=== PATIENT | male | born 1955 | race Caucasian/White ===

== ENCOUNTER 2017-12-02 03:50 | Emergency (ER) | payer MEDICAID ==
[~2017-12-02 03:50] MED LIST: ARIP20 PO; ATEN1TAB75 PO; CEFA500C6 PO; CLON.1 PO; NAPR-729 PO; PARO40TA PO; QUET1TAB66 PO; TRAZ100T50 PO; XANA1TAB6 PO
[2017-12-02 04:00] VITALS: BP 171/94; PULSE 109; RESP 18; TEMP 99.2; O2SAT 97
[2017-12-02] MEDS ORDERED: HYDR-3580 PO (04:17)
[2017-12-02] MEDS ORDERED: BUSP1TAB PO (04:17)
[2017-12-02] MEDS ORDERED: FENT25DI T-DERMAL (04:17)
[2017-12-02] MEDS ORDERED: CLON1TAB PO (04:17)
[2017-12-02] MEDS ORDERED: LISI-515 PO (04:17)
[2017-12-02] MEDS ORDERED: TRAZ1TAB14 PO (04:17)
[2017-12-02] MEDS ORDERED: ATEN25TA PO (04:17)
[2017-12-02] MEDS ORDERED: GABA300C5 PO (04:17)
--- NOTE | 2017-12-02 06:04 | PD ---
HPI Chief Complaint: Psychiatric Symptoms Time Seen by Provider: 04:54 Travel History International Travel<30 days: No Contact w/Intl Traveler<30days: No Traveled to known affect area: No History of Present Illness HPI 62-year-old white male presents emergency department as a transfer from [facility] under Bustos act. The patient had been medically cleared and transferred to be evaluated by the psychiatrist. The patient states that he had been in a rehab facility due to chronic back pain. He states that he had been at the facility approximately 6 months. He had left to go babysit for his niece while she was away for a few days. He states that when he had gone back to the facility they had packed up his belongings. He had gotten upset. Patient had become agitated. The patient stated that he wanted it ended all due to his chronic pain. The patient also had banged his head. The patient here denies being suicidal. He states that he was merely upset that they had taken his residents away from him. The patient had been living in a trailer by his in the [facility]. He had been homeless until he had moved into the rehab facility. Patient admits to chronic back pain. He reports not taking his medicine for several days. Denies any homicidal ideation. No toxic ingestions. PFSH Past Medical History Arthritis: Yes (RIGHT HAND) Asthma: No Autoimmune Disease: No Blood Disorders: No Bipolar Disorder: Yes Anxiety: Yes Depression: Yes Heart Rhythm Problems: Yes (IRR. HR) Cancer: No Cardiac Catheterization: No Cardiovascular Problems: Yes High Cholesterol: No Chemotherapy: No Chest Pain: Yes (5 YEARS) Congestive Heart Failure: No COPD: No Cerebrovascular Accident: No Diabetes: No Diminished Hearing: No Endocrine: No Gastrointestinal Disorders: No GERD: No Glaucoma: No Genitourinary: No Headaches: Yes (WEEKLY PAIN LEVEL7/10) Hepatitis: No Hiatal Hernia: No Hypertension: Yes Immune Disorder: No Implanted Vascular Access Dvce: No Kidney Stones: No Musculoskeletal: Yes (CHRONIC LOW BACK PAIN ) Neurologic: No Psychiatric: Yes Reproductive: No Respiratory: Yes (RECENT PNEUMONIA) Migraines: No Myocardial Infarction: No Radiation Therapy: No Renal Failure: No Seizures: No Sickle Cell Disease: No Sleep Apnea: No Thyroid Disease: No Ulcer: No Past Surgical History Abdominal Surgery: Yes (APENDECTOMY) AICD: No Appendectomy: Yes Arteriovenous Shunt: No Cardiac Surgery: No Cholecystectomy: No Coronary Artery Bypass Graft: No Ear Surgery: No Endocrine Surgery: No Eye Surgery: No Genitourinary Surgery: No Gynecologic Surgery: No Insulin Pump: No Joint Replacement: No Neurologic Surgery: No Oral Surgery: No Pacemaker: No Thoracic Surgery: No Other Surgery: Yes Family History Family Myocardial Infarction: Yes Social History Alcohol Use: Yes Tobacco Use: Yes Substance Use: Yes (PAIN MEDICATION) Allergies-Medications (Allergen,Severity, Reaction): Coded Allergies: No Known Allergies (Verified , 04/14/09) Reported Meds & Prescriptions Reported Meds & Active Scripts Active Reported Trazodone (Trazodone HCl) 150 Mg Tablet 150 Mg PO HS Lisinopril 20 Mg Tab 20 Mg PO DAILY Gabapentin 300 Mg Cap 300 Mg PO TID Fentanyl Patch 72 HR (Fentanyl) 25 Mcg/Hr Patch 25 Mcg T-DERMAL Q72H Clonazepam 1 Mg Tab 1 Mg PO TID Buspirone (Buspirone HCl) 7.5 Mg Tab 7.5 Mg PO BID Atenolol 25 Mg Tab 25 Mg PO BID Hydrocodone-Acetaminophen 7.5 Mg-325 Mg Tab 1 Tab PO Q6H PRN Review of Systems Except as stated in HPI: all other systems reviewed are Neg General / Constitutional: No: Fever, Chills Eyes: No: Blurred Vision, Photophobia HENT: No: Sore Throat, Congestion Cardiovascular: No: Chest Pain or Discomfort, Palpitations Respiratory: No: Cough, Shortness of Breath Gastrointestinal: No: Nausea, Vomiting Genitourinary: No: Frequency, Dysuria Musculoskeletal: Positive: Myalgias, Arthralgias, Limited ROM, Pain, No: Weakness, Cramping, Edema Skin: No Rash, No Itching Neurologic: No: Syncope, Focal Abnormalities Psychiatric: Positive: Depression, Mood Disorder, No: Anxiety, Suicidal Ideations, Disorder of Thought, Substance Abuse, Homicidal Ideation Physical Exam Narrative GENERAL: Well-nourished, well-developed patient. SKIN: Warm and dry. HEAD: Normocephalic and atraumatic. EYES: No scleral icterus. No injection or drainage. ENT: No nasal drainage noted. Mucous membranes pink. Airway patent. NECK: Supple, trachea midline. Moves head freely without obvious discomfort. CARDIOVASCULAR: Regular rate and rhythm without murmurs, gallops, or rubs. RESPIRATORY: Breath sounds equal bilaterally. No accessory muscle use. GASTROINTESTINAL: Abdomen soft, non-tender, nondistended. EXTREMITIES: No cyanosis or edema. BACK: Nontender without obvious deformity. No CVA tenderness. NEURO: Patient is alert and oriented. no sensorimotor deficits. Nonfocal. Normal speech. PSYCH: No delusions. No auditory or visual hallucinations. Data Data Last Documented VS Vital Signs Date Time Temp Pulse Resp B/P (MAP) Pulse Ox O2 Delivery O2 Flow Rate FiO2 12/02/17 04:00 99.2 109 18 171/94 (119) 97 Room Air Orders Orders Diet Heart Healthy (12/02/17 Breakfast) Psych Screen (12/02/17 04:22) MDM Medical Decision Making Medical Screen Exam Complete: Yes Emergency Medical Condition: Yes Medical Record Reviewed: Yes Interpretation(s) I reviewed the patient's laboratory testing. Differential Diagnosis MDM: High Differential diagnoses: Schizophrenia, schizoaffective disorder, bipolar, anxiety, depression, adjustment reaction, mood disorder NOS, ODD, depressive disorder NOS, dementia, dementia with agitation, psychosis NOS, substance induced mood disorder, DMDD, Asperger syndrome, infection,electrolyte abnormality, malingering. Narrative Course Mental health screening discussed with the patient. Psychiatric screen ordered. The patient had been medically cleared by [facility]. I reviewed her medical clearance and agree. The patient's exam today is unrevealing. He has been up to the bathroom and ambulates freely. He does not appear to be in any acute pain. He denies any acute suicidal ideation. No homicidal ideation. The patient will be evaluated by the psychiatrist in the morning. This is medical clearance for psychiatric admission Diagnosis Primary Impression: Medical clearance for psychiatric admission Condition: Tarik Gates Dec 02, 2017 06:03
[2017-12-02 06:08] VITALS: BP 156/78; PULSE 109; RESP 17; TEMP 98.6; O2SAT 98
[2017-12-02 08:43] VITALS: BP 151/101; PULSE 111; RESP 20; O2SAT 97
[2017-12-02 09:17] VITALS: BP 186/97; PULSE 116; RESP 18; O2SAT 97
[2017-12-02] MEDS ORDERED: LISINOPRIL 20 MG TAB PO SCH (11:00)
[2017-12-02] MEDS ORDERED: busPIRone HCL 5 MG TAB PO SCH (11:00)
[2017-12-02] MEDS ORDERED: ATENOLOL 25 MG TAB PO SCH (11:00)
[2017-12-02] MEDS ORDERED: clonazePAM 1 MG TAB PO SCH (11:00)
[2017-12-02] MEDS: GABAPENTIN 300 MG CAP PO SCH ×2 (11:25→13:58)
[2017-12-02 13:32] VITALS: BP 143/88; PULSE 82; RESP 18; O2SAT 98
--- NOTE | 2017-12-02 13:46 | PD ---
History of Present Illness Chief Complaint: Psychiatric Symptoms Time Seen by Provider: 13:05 Travel History International Travel<30 Days: No Contact w/Intl Traveler<30days: No Known affected area: No Legal Status Legal Status: Bustos Act Bustos Act Comment: INTITIATED AT [facility] History of Present Illness: History of Present Illness HPI 62-year-old white, male with reported history of depression, alcohol use disorder, opioid use disorder who presents emergency department as a transfer from [facility] under Bustos act. Information obtained from documentation from from [facility] indicate that the patient presented to the [facility] emergency department on a voluntary basis stating that" he did not want to live anymore and that he was under stress for the past few days, he needed his medications, cannot stay in his physical pain, wants to kill himself." While being interviewed the patient began to hit himself in the head and was placed under an involuntary status by the ED physician. The actual Bustos act states" psych screener was evaluating the patient and he started to slap himself in the face." The patient is well known to [facility] and is reported to have had 10 admissions to [facility] since 2008 with the last admission from September 12 - September 18, 2017. Patient was monitored in [facility] and he presented no behavioral concerns, no self- injurious behavior, no suicidality. EMR is reviewed. Last contact with half that the patient was in 2008. Patient is alert and oriented, calm and cooperative. He is advocating for himself to be discharge because he states that his fiance is waiting for him and that they were supposed to get this weekend. He goes on to tell me that he had been at a rehabilitation facility in [place] for treatment of his persistent back pain. He left the facility to help his knees take care of her children and when he returned his belongings had been packed and he was discharged from that facility. He found himself homeless and became overwhelmed. He now states that they were providing opiates for him at the facility and that he does not want to go into withdrawal. He is requesting that we discharge him from [facility] so that he can present himself to [facility] for admission for detox. The patient does not present any evidence of any psychosis , no megan, no suicidal or homicidal ideation, intent or plan. PFSH Past Medical History Arthritis: Yes (RIGHT HAND) Asthma: No Autoimmune Disease: No Blood Disorders: No Bipolar Disorder: Yes Anxiety: Yes Depression: Yes Heart Rhythm Problems: Yes (IRR. HR) Cancer: No Cardiac Catheterization: No Cardiovascular Problems: Yes High Cholesterol: No Chemotherapy: No Chest Pain: Yes (5 YEARS) Congestive Heart Failure: No COPD: No Cerebrovascular Accident: No Diabetes: No Diminished Hearing: No Endocrine: No Gastrointestinal Disorders: No GERD: No Glaucoma: No Genitourinary: No Headaches: Yes (WEEKLY PAIN LEVEL7/10) Hepatitis: No Hiatal Hernia: No Hypertension: Yes Immune Disorder: No Implanted Vascular Access Dvce: No Kidney Stones: No Musculoskeletal: Yes (CHRONIC LOW BACK PAIN ) Neurologic: No Psychiatric: Yes Reproductive: No Respiratory: Yes (RECENT PNEUMONIA) Migraines: No Myocardial Infarction: No Radiation Therapy: No Renal Failure: No Seizures: No Sickle Cell Disease: No Sleep Apnea: No Thyroid Disease: No Ulcer: No Past Surgical History Abdominal Surgery: Yes (APENDECTOMY) AICD: No Appendectomy: Yes Arteriovenous Shunt: No Cardiac Surgery: No Cholecystectomy: No Coronary Artery Bypass Graft: No Ear Surgery: No Endocrine Surgery: No Eye Surgery: No Genitourinary Surgery: No Gynecologic Surgery: No Insulin Pump: No Joint Replacement: No Neurologic Surgery: No Oral Surgery: No Pacemaker: No Thoracic Surgery: No Other Surgery: Yes Psychiatric History Psychiatric History Hx Psychiatric Treatment: HX: DEPRESSION has had 10 admissions to [facility] since 2008. He does not follow up with outpatient psychiatry. History of Inpatient Treatment: Yes Guns or firearms in home: No Social History 3 and 3 2. He is currently homeless but plans on moving in with his girlfriend. He is unemployed on SSI. Hx Alcohol Use: Yes Hx Tobacco Use: Yes Hx Substance Use: Yes (PAIN MEDICATION) Substance Use Type: Alcohol, Nicotine/Cigarettes, Synth Opiates-Pain Pills Hx of Substance Use Treatment: No Family Psychiatric History Negative Allergies-Medications (Allergen,Severity, Reaction): Coded Allergies: No Known Allergies (Verified Allergy, Unknown, 12/02/17) Reported Meds & Prescriptions Reported Meds & Active Scripts Active Reported Trazodone (Trazodone HCl) 150 Mg Tablet 150 Mg PO HS Lisinopril 20 Mg Tab 20 Mg PO DAILY Gabapentin 300 Mg Cap 300 Mg PO TID Fentanyl Patch 72 HR (Fentanyl) 25 Mcg/Hr Patch 25 Mcg T-DERMAL Q72H Clonazepam 1 Mg Tab 1 Mg PO TID Buspirone (Buspirone HCl) 7.5 Mg Tab 7.5 Mg PO BID Atenolol 25 Mg Tab 25 Mg PO BID Hydrocodone-Acetaminophen 7.5 Mg-325 Mg Tab 1 Tab PO Q6H PRN Review of Systems Musculoskeletal: COMPLAINS OF: Back pain Psychiatric: COMPLAINS OF: Anxiety Mental Status Examination Appearance: Appropriate Consciousness: Alert Orientation: x4 Motor Activity: Normal gait Speech: Unremarkable Language: Adequate Fund of Knowledge: Adequate Attention and Concentration: Adequate Memory: Unremarkable Mood: Appropriate Affect: Appropriate Thought Process & Associations: Intact, Logical, Goal directed Thought Content: Appropriate Hallucination Type: None Delusion Type: None Suicidal Ideation: No Suicidal Plan: No Suicidal Intention: No Homicidal Ideation: No Homicidal Plan: No Homicidal Intention: No Insight: Adequate Judgment: Impulsive MDM Medical Decision Making Medical Record Reviewed: Yes Assessment/Plan History of Present Illness HPI 62-year-old white, male with reported history of depression, alcohol use disorder, opioid use disorder who presents emergency department as a transfer from [facility] under Bustos act. Information obtained from documentation from from [facility] indicate that the patient presented to the [facility] emergency department on a voluntary basis stating that" he did not want to live anymore and that he was under stress for the past few days, he needed his medications, cannot stay in his physical pain, wants to kill himself." While being interviewed the patient began to hit himself in the head and was placed under an involuntary status by the ED physician. The patient was monitored in secure environment and presented no behavioral concerns, no agitation, no self-injurious behavior, no suicidality. This morning he is requesting to be discharged and has had contact with his fiance who is ready to come and pick him up. He tells me that they have planned on getting this weekend. He also states that he might go to [facility] to seek detox services because he did not get prescriptions from the facility that he was at. This patient does not present evidence of unstable mental illness at this time. He is future oriented. He has formulated an adequate disposition plan for himself. He is asking for discharge and I find no criteria to keep him here under the Bustos act. He is provided psychoeducation. The Bustos act as lifted. Psychiatrically clear for discharge. Orders Orders Diet Heart Healthy (12/02/17 Breakfast) Psych Screen (12/02/17 04:22) Diet Regular Basic (12/02/17 Lunch) Lisinopril (Prinivil) (12/02/17 11:00) Gabapentin (Neurontin) (12/02/17 11:00) Clonazepam (Klonopin) (12/02/17 11:00) Buspirone (Buspar) (12/02/17 11:00) Atenolol (Tenormin) (12/02/17 11:00) Results Vital Signs Date Time Temp Pulse Resp B/P (MAP) Pulse Ox O2 Delivery O2 Flow Rate FiO2 12/02/17 13:32 82 18 143/88 (106) 98 Room Air 12/02/17 09:17 116 18 186/97 (126) 97 Room Air 12/02/17 08:43 111 20 151/101 (118) 97 Room Air 12/02/17 06:08 98.6 109 17 156/78 (104) 98 Room Air 12/02/17 04:00 99.2 109 18 171/94 (119) 97 Room Air Diagnosis Primary Impression: Medical clearance for psychiatric admission Additional Impressions: Substance induced mood disorder Polysubstance dependence Psychiatrically Cleared: Yes Med/ Other Pt Specific Info: No Meds Exist/No RX given Disposition: 01 DISCHARGE HOME Condition: Stable Problem Qualifiers Donita Napoles Dec 02, 2017 13:46
--- NOTE | 2017-12-02 14:01 | PD ---
Physical Exam Date Seen by Provider: Dec 02, 2017 Time Seen by Provider: 14:00 Narrative 62-year-old previously medically clear for psychiatric evaluation has been seen by psychiatric staff and deemed to be psychiatrically stable for discharge at this time. Patient remains medically stable for discharge. Follow-up will be based on psychiatric note. Data Data Last Documented VS Vital Signs Date Time Temp Pulse Resp B/P (MAP) Pulse Ox O2 Delivery O2 Flow Rate FiO2 12/02/17 13:32 82 18 143/88 (106) 98 Room Air 12/02/17 06:08 98.6 Orders Orders Diet Heart Healthy (12/02/17 Breakfast) Psych Screen (12/02/17 04:22) Diet Regular Basic (12/02/17 Lunch) Lisinopril (Prinivil) (12/02/17 11:00) Gabapentin (Neurontin) (12/02/17 11:00) Clonazepam (Klonopin) (12/02/17 11:00) Buspirone (Buspar) (12/02/17 11:00) Atenolol (Tenormin) (12/02/17 11:00) MDM Medical Record Reviewed: Yes Supervised Visit with SUJEY: Yes Narrative Course 62-year-old previously medically clear for psychiatric evaluation has been seen by psychiatric staff and deemed to be psychiatrically stable for discharge at this time. Patient remains medically stable for discharge. Follow-up will be based on psychiatric note. Diagnosis Primary Impression: Medical clearance for psychiatric admission Additional Impressions: Polysubstance dependence Substance induced mood disorder Patient Instructions: General Instructions Disposition: 01 DISCHARGE HOME Condition: Stable Alvin Jones Dec 02, 2017 14:01
== END 2017-12-02 14:43 | disposition home or self-care (01) ==
LOC: NEPC 03:50 → NEPJ 14:43
DX: F19.94 Other psychoactive substance use, unspecified with psychoactive substance-induced mood disorder (principal); F10.20 Alcohol dependence, uncomplicated; G89.29 Other chronic pain; M54.9 Dorsalgia, unspecified; R45.1 Restlessness and agitation; M19.041 Primary osteoarthritis, right hand; F41.8 Other specified anxiety disorders; I10 Essential (primary) hypertension; Z72.0 Tobacco use; Z59.0 Homelessness
CPT/HCPCS: 99283